=== PATIENT | female | born 1970 | race Caucasian/White ===

== ENCOUNTER 2017-06-04 20:56 | Emergency (ER) | payer OTHER ==
[~2017-06-04] VITALS: Ht 177.8 cm; Wt 136.1 kg
[~2017-06-04 20:56] MED LIST: ALBU90OI INH; Bactrim Ds Tab1 EACH PO; CEPH500 PO; CLIN150; CYCL10 PO; DIAZ5 PO; DIVA125EC; DULO30 PO; DULO60 PO; GABA300 PO; HYDACE5 PO; IBUP600 PO; IBUP800 PO; LITH300C PO; Lorazepam1 MG PO; MELO7.5 PO; NAPR500 PO; NAPR550 PO; Naprosyn500 MG PO; OXYACE5T PO; Oxybutynin Chlo10 MG PO; PRED20 PO; PROACE100 PO; PROM25 PO; Percocet 5-3251 EACH PO; RXNAPNA550 PO; RXONDA4ODT MM; RXOXYACE PO; RXPROACE PO; RXPROM25 PO; RXSULTRIDS PO; SULTRIDS PO; TOBDEXOPSU OP; TRAZ50 PO; [UNRECOGNIZED DRUG - REMARK]
[2017-06-04] MEDS ORDERED: Bactrim Ds Tab1 EACH PO (22:06)
[2017-06-04] MEDS ORDERED: CEPH500 PO (22:06)
== END 2017-06-04 22:22 | disposition home or self-care (01) ==
LOC: ER 20:56
DX: L02.415 Cutaneous abscess of right lower limb (principal); L03.115 Cellulitis of right lower limb; Z88.5 Allergy status to narcotic agent; F32.9 Major depressive disorder, single episode, unspecified; F17.200 Nicotine dependence, unspecified, uncomplicated
CPT/HCPCS: 10060; 99283

== ENCOUNTER → 2019-01-09 | Outpatient (CLI) | payer OTHER | LOC: LAB SHORT 15:46 → LAB EV 15:46 | DX: N39.0 Urinary tract infection, site not specified (principal) | CPT/HCPCS: 87077; 87086; 87186 ==

== ENCOUNTER → 2019-02-25 | Outpatient (CLI) | payer OTHER ==
[2019-02-25 11:05] LABS: BASOPHILS ABSOLUTE AUTO 0.02 K/mm3 (0.00-0.23); BASOPHILS PERCENT AUTO 0 % (0-2); EOSINOPHILS ABSOLUTE AUTO 0.29 K/mm3 (0.00-0.68); EOSINOPHILS PERCENT AUTO 4 % (0-6); Hematocrit 45.7 % (33.0-51.0); Hemoglobin 15.6 g/dL (11.5-16.0); IMMATURE GRAN ABSOLUTE AUTO 0.02 K/mm3 (0.00-0.10); IMMATURE GRAN PERCENT AUTO 0 % (0-1); LYMPHOCYTES ABSOLUTE AUTO 0.87 K/mm3 (0.84-5.20); LYMPHOCYTES PERCENT AUTO 12 % (21-46); MONOCYTES ABSOLUTE AUTO 0.43 K/mm3 (0.16-1.47); MONOCYTES PERCENT AUTO 6 % (4-13); Mean Corpuscular HGB 32.2 pg (26.0-34.0); Mean Corpuscular HGB Conc 34.1 g/dL (31.5-36.5); Mean Corpuscular Volume 94 fL (80-100); Mean Platelet Volume 9.2 fL (9.1-12.4); NEUTROPHILS ABSOLUTE AUTO 5.82 K/mm3 (1.96-9.15); NEUTROPHILS PERCENT AUTO 78 % (41-73); Platelet Count 382 K/mm3 (150-400); RDW Coefficient Variation 12.3 % (11.7-14.2); RDW Standard Deviation 42.9 fL (35.1-46.3); Red Blood Cell Count 4.85 M/mm3 (3.80-5.20); White Blood Cell Count 7.45 K/mm3 (4.00-11.30)
[2019-02-25 11:20] LABS: Alanine Aminotransfer (ALT/SGP 24 U/L (12-78); Albumin, Blood 3.8 g/dL (3.4-5.0); Albumin/Globulin Ratio 0.9 (0.8-1.8); Alk Phos 73 U/L (40-126); Anion Gap 7 mmol/L (6-16); Aspartate Aminotrans (AST/SGOT 26 U/L (12-37); Bilirubin, Total 0.3 mg/dL (0.1-1.0); Blood Urea Nitrogen 7 mg/dL (8-24); Bun/Creatinine Ratio 8.4 (12.0-20.0); CO2, Blood 29 mmol/L (21-32); Calcium, Blood 8.9 mg/dL (8.5-10.1); Chloride, Blood 104 mmol/L (98-108); Creatinine, Blood 0.83 mg/dL (0.40-1.00); Globulin, Blood 4.3 g/dL (2.2-4.0); Glomerular Filtration Rate >60 (60-); Glucose, Blood 83 mg/dL (70-99); Potassium, Blood 4.3 mmol/L (3.5-5.5); Sodium, Blood 140 mmol/L (136-145); Total Protein, Blood 8.1 g/dL (6.4-8.2)
== END | disposition home or self-care (01) ==
LOC: LAB EV 10:56 → LAB SHORT 10:56
PROVIDERS: Physician Assistant
DX: T50.905A Adverse effect of unspecified drugs, medicaments and biological substances, initial encounter (principal)
CPT/HCPCS: 80053; 85025

== ENCOUNTER 2021-03-19 09:35 | Emergency (ER) | payer OTHER ==
[~2021-03-19] VITALS: Ht 177.8 cm; Wt 140.6 kg
[2021-03-19] MEDS ORDERED: TRAM50 PO (11:15)
[2021-03-19] MEDS ORDERED: Voltaren100 GM TOP (11:15)
== END 2021-03-19 11:32 | disposition home or self-care (01) ==
LOC: ER 09:35
DX: M25.562 Pain in left knee (principal); F17.210 Nicotine dependence, cigarettes, uncomplicated; Z88.5 Allergy status to narcotic agent; Z79.899 Other long term (current) drug therapy
CPT/HCPCS: 73562-LT; 96372; 99283-25; J1885

== ENCOUNTER 2023-03-16 22:36 | Emergency (ER) | payer OTHER ==
[~2023-03-16] VITALS: Ht 177.8 cm; Wt 127.0 kg
[~2023-03-16 22:36] MED LIST changes: +TRAM50 PO; +Voltaren100 GM TOP
[2023-03-16 23:28] VITALS: BP 117/77
== END 2023-03-16 23:36 | disposition home or self-care (01) ==
LOC: ER 22:36
DX: S61.412A Laceration without foreign body of left hand, initial encounter (principal); F17.210 Nicotine dependence, cigarettes, uncomplicated; W26.0XXA Contact with knife, initial encounter; Z88.5 Allergy status to narcotic agent
CPT/HCPCS: 12001; 99282-25

== ENCOUNTER 2025-01-29 17:39 | Inpatient (IN) | payer OTHER ==
[~2025-01-29] VITALS: Ht 177.8 cm; Wt 146.4 kg
[2025-01-29 18:12] LABS: BASOPHILS ABSOLUTE AUTO 0.04 K/mm3 (0.00-0.23); BASOPHILS PERCENT AUTO 0 % (0-2); EOSINOPHILS ABSOLUTE AUTO 0.06 K/mm3 (0.00-0.68); EOSINOPHILS PERCENT AUTO 0 % (0-6); Hematocrit 42.4 % (33.0-51.0); Hemoglobin 14.3 g/dL (11.5-16.0); IMMATURE GRAN ABSOLUTE AUTO 0.06 K/mm3 (0.00-0.10); IMMATURE GRAN PERCENT AUTO 0 % (0-1); LYMPHOCYTES ABSOLUTE AUTO 1.28 K/mm3 (0.84-5.20); LYMPHOCYTES PERCENT AUTO 9 % (21-46); MONOCYTES ABSOLUTE AUTO 0.64 K/mm3 (0.16-1.47); MONOCYTES PERCENT AUTO 5 % (4-13); Mean Corpuscular HGB Conc 33.7 g/dL (31.5-36.5); Mean Corpuscular Volume 94 fL (80-100); NEUTROPHILS ABSOLUTE AUTO 11.64 K/mm3 (1.96-9.15); NEUTROPHILS PERCENT AUTO 85 % (41-73); NRBC ABSOLUTE 0.00 K/mm3 (0.00-0.02); NRBC Auto 0.0 /100 WBC (0.0-0.2); Platelet Count 276 K/mm3 (150-400); RDW Coefficient Variation 12.3 % (11.7-14.2); RDW Standard Deviation 42.3 fL (35.1-46.3)
[2025-01-29] MEDS ORDERED: Ondansetron HCl 2 MG / ML 2ML Vial IV ONE (18:30)
[2025-01-29 18:31] LABS: Alanine Aminotransfer (ALT/SGP 29 U/L (12-78); Albumin, Blood 3.8 g/dL (3.4-5.0); Albumin/Globulin Ratio 0.9 (0.8-1.8); Anion Gap 6 mmol/L (3-11); Aspartate Aminotrans (AST/SGOT 26 U/L (12-37); Bilirubin, Total 0.5 mg/dL (0.1-1.0); Blood Urea Nitrogen 7 mg/dL (8-24); CO2, Blood 28 mmol/L (21-32); Calcium, Blood 9.5 mg/dL (8.5-10.1); Chloride, Blood 107 mmol/L (98-108); Creatinine, Blood 0.63 mg/dL (0.40-1.00); Ethanol (Alcohol), Blood, Med <3 mg/dL; Globulin, Blood 4.3 g/dL (2.2-4.0); Glucose, Blood 154 mg/dL (70-99); Potassium, Blood 3.3 mmol/L (3.5-5.5); Sodium, Blood 138 mmol/L (136-145); Total Protein, Blood 8.1 g/dL (6.4-8.2)
[2025-01-29] MEDS ORDERED: FLU VACC TS2025-26(6MOS UP)/PF 45 MCG/0.5 ML SYRINGE IM SCH (19:35)
[2025-01-29 21:18] VITALS: BP 129/85
[2025-01-30 00:52] VITALS: BP 124/83
[2025-01-30 01:33] LABS: Source, Urine Clean Catch
[2025-01-30 01:44] LABS: Bilirubin, Urine Neg (Neg); Glucose Qualitative, Urine Neg (Neg); Ketones, Urine 1+ (Neg); Leukocyte Esterase, Urine 2+ (Neg); Protein, Urine 2+ (Neg); Specific Gravity, Urine 1.010 (1.003-1.022); Urobilinogen, Urine NORM (Normal)
[2025-01-30 01:54] LABS: Color, Urine Yellow (P-Yellow); White Blood Cells, Urine 50-100 /hpf (0-5)
[2025-01-30 01:55] LABS: Red Blood Cells, Urine 0-2 /hpf (0-2)
[2025-01-30 02:03] LABS: U Amphetamine Screen DETECTED; U Barbiturate Screen Not Detected; U Benzodiazapine Screen Not Detected; U Buprenorphine Screen Not Detected; U Cannabinoids Screen Not Detected; U Cocaine Screen Not Detected; U Methadone Screen Not Detected; U Methamphetamine Screen DETECTED; U Opiates Screen Not Detected; U Phencyclidine Screen Not Detected
[2025-01-30 02:04] LABS: U Oxycodone Screen Not Detected
[2025-01-30 03:56] LABS: BASOPHILS ABSOLUTE AUTO 0.02 K/mm3 (0.00-0.23); BASOPHILS PERCENT AUTO 0 % (0-2); EOSINOPHILS ABSOLUTE AUTO 0.00 K/mm3 (0.00-0.68); EOSINOPHILS PERCENT AUTO 0 % (0-6); Hematocrit 41.4 % (33.0-51.0); Hemoglobin 13.6 g/dL (11.5-16.0); IMMATURE GRAN ABSOLUTE AUTO 0.02 K/mm3 (0.00-0.10); IMMATURE GRAN PERCENT AUTO 0 % (0-1); LYMPHOCYTES ABSOLUTE AUTO 0.76 K/mm3 (0.84-5.20); LYMPHOCYTES PERCENT AUTO 8 % (21-46); MONOCYTES ABSOLUTE AUTO 0.37 K/mm3 (0.16-1.47); MONOCYTES PERCENT AUTO 4 % (4-13); Mean Corpuscular HGB Conc 32.9 g/dL (31.5-36.5); Mean Corpuscular Volume 94 fL (80-100); NEUTROPHILS ABSOLUTE AUTO 8.89 K/mm3 (1.96-9.15); NEUTROPHILS PERCENT AUTO 88 % (41-73); NRBC ABSOLUTE 0.00 K/mm3 (0.00-0.02); NRBC Auto 0.0 /100 WBC (0.0-0.2); Platelet Count 269 K/mm3 (150-400); RDW Coefficient Variation 12.1 % (11.7-14.2); RDW Standard Deviation 42.0 fL (35.1-46.3)
[2025-01-30 04:26] LABS: Alanine Aminotransfer (ALT/SGP 27 U/L (12-78); Albumin, Blood 3.4 g/dL (3.4-5.0); Albumin/Globulin Ratio 0.8 (0.8-1.8); Anion Gap 8 mmol/L (3-11); Aspartate Aminotrans (AST/SGOT 22 U/L (12-37); Bilirubin, Total 0.5 mg/dL (0.1-1.0); Blood Urea Nitrogen 6 mg/dL (8-24); CHOL/HDL RATIO 2.5; CO2, Blood 29 mmol/L (21-32); Calcium, Blood 9.4 mg/dL (8.5-10.1); Chloride, Blood 106 mmol/L (98-108); Cholesterol 161 mg/dL (50-200); Creatinine, Blood 0.62 mg/dL (0.40-1.00); Globulin, Blood 4.1 g/dL (2.2-4.0); Glucose, Blood 127 mg/dL (70-99); HDL Cholesterol 64 mg/dL (>39); LDL/HDL RATIO 1.4; Low Density Lipoprotein Chol 88 mg/dL (0-110); Potassium, Blood 3.8 mmol/L (3.5-5.5); Sodium, Blood 139 mmol/L (136-145); Thyroid Stimulating Hormone 0.165 uIU/mL (0.360-4.800); Total Protein, Blood 7.5 g/dL (6.4-8.2); Triglycerides 47 mg/dL (30-160); Very Low Density Lipoprot Chol 9 mg/dL (6-32)
[2025-01-30] MEDS ORDERED: Ondansetron HCl 2 MG / ML 2ML Vial IV ONE (05:00)
[2025-01-30] MEDS ORDERED: Ondansetron HCl 2 MG / ML 2ML Vial IV PRN ×2 (05:00→14:25)
--- NOTE | 2025-01-30 06:50 | NUR ---
SHIFT SUMMARY: PT ARRIVES TO PCU 15 FROM THE ER VIA GURNEY AROUND 2100. TRANSFERRED PT TO HOSPITAL BED USING SLIDE SHEET. PT STATES SHE GETS DIZZY AND NAUSEAOUS WITH ANY MOVEMENT. PT ORIENTED TO ROOM AND CALL LIGHT. PT ARRIVES WITH AUDELIA, AUDELIA REMAINS AT BEDSIDE T/O THE NIGHT, ATTENTIVE TO PT. PT IS A&OX4. VSS ON RA. SR 70'S-80'S. NO NEURO DEFICITS NOTED THIS SHIFT. ADMINISTERED PRN ZOFRAN FOR N/V. PT REMAINS NPO THIS SHIFT. X2 ASSIST TO BSC. PT IS UNSTEADY ON HER FEET. VOIDING ADEQUATE AMOUNTS OF MALODOROUS, CLOUDY, AND CONCENTRATED YELLOW URINE. NO BM THIS SHIFT. BED IN LOWEST POSITION, CALL LIGHT WITHIN REACH. BED ALARM SET FOR PT'S SAFETY.
[2025-01-30 07:51] VITALS: BP 125/79
[2025-01-30] MEDS ORDERED: Prochlorperazine Edisylate 10 mg Vial IV STA (08:07)
[2025-01-30] MEDS ORDERED: Prochlorperazine Edisylate 10 mg Vial IV PRN (09:00)
--- NOTE | 2025-01-30 11:19 | NUR ---
MORNING SUMMARY THE PT IS DROWSY BUT ORIENTEDX4, SHE IS A 1-2P MOD ASSIST TRANSFER TO THE [facility] [place]. THE PT HAS EXTREME DIZZINESS WITH ANY MOVEMENT AND GETTING UP. THE PT STATES THAT SHE FEELS LIKE SHE IS BEING PUSHED OVER. WITH THE DIZZINESS THE PATIENT HAS BEEN HAVING N/V AND A 10/10 HEADACHE SINCE FALLING 01/29. MRI COMPLETED THIS LATE MORNING. AWAITING RESULTS AT THIS TIME. DR. LUIS ROUNDED ON THE PT THIS MORNING AND THIS RN DISCUSSED CONCERN OF DEHYDRATION D/T N/V, NPO, AND DARK POTENT URINE. THIS RN INQUIRED ABOUT FLUIDS. DR. LUIS STATED SHE WAS GOING TO TAKE A LOOK AND WANTS THE PT TO REMAIN NPO UNTIL SHE SEES THE MRI RESULTS. MEDICATIONS GIVEN PER EMAR FOR N/V. ON TELE THE PT IS SR 70'S, AND HER BP IS STABLE. SHE HAS BEEN ON RA W/ SP02 >92%. SHE DID DESATURATE TO 88% WHEN ASLEEP. THE PT'S ALEKSANDER STATED THAT THE PT HAS NEVER HAD A SLEEP STUDY BEFORE. ALEKSANDER HAS BEEN AT BEDSIDE AND UPDATES ON CARE. ALEKSANDER HAS THE PT'S JEWELRY, INCULDING THE PT'S WEDDING RING. SEE NOTES FOR UPDATES.
[2025-01-30 12:08] VITALS: BP 138/84
[2025-01-30] MEDS ORDERED: Miconazole Nitrate 2% 85 GM PWD TOP PRN (12:45)
--- NOTE | 2025-01-30 13:20 | NUR ---
MRI RESULTS THIS RN CALLED DR. LUIS WITH MRI RESULTS. NIH-7 ON ASSESSMENT. THE PT AND PT'S ARE AWAITING RESULTS FROM THE MRI STILL. DR. LUIS STATED SHE WILL BE BACK BY TO DISCUSS WITH THE PT. SEE NOTES FOR UPDATES.
[2025-01-30] MEDS ORDERED: FentaNYL Citrate 50 MCG/ML 2 ML Injection IV PRN (14:25)
[2025-01-30 15:16] VITALS: BP 138/83
--- NOTE | 2025-01-30 17:30 | NUR ---
Upon request, I visited with patient's SO, Debbie, outside of the patient's room. We talked about the complications of the medical diagnosis, their relationship and the many stressors that she is dealing with. We explored her spiritual beliefs, her hopes and the family unit dynamics. I provided therapeutic listening, gentle intellectual property counsel, and prayer. Debbie responded well and stated that the visit was very helpful. I will continue to remain available to the patient and family.
--- NOTE | 2025-01-30 17:39 | NUR ---
END OF SHIFT UPDATES THE PT HAS BEEN MORE ALERT AND REMAINS ORIENTEDX4. WHEN THE PT IS MORE ALERT SHE DOES NOT SLUR HER WORDS MUCH. THE PT HAS BEEN A 1-2 P ASSIST D/T DIZZINESS. ANTIVERT WAS STARTED FOR THE PT THIS AFTERNOON. NAUSEA HAS BEEN IMPROVING SINCE THIS MORNING AND THE PT WAS CLEARED FOR A REGULAR DIET AFTER A BEDSIDE SWALLOW EVALUATION. THE PT PASSED BED SIDE SWALLOW AND HAS BEEN STARTED TO A REGULAR DIET. DR. LUIS CAME AND DISCUSSED RESULTS WITH THE PT AND THE PT'S . PRINTED AND VERBAL EDUCATION PROVIDED ABOUT STROKE PREVENTION AND CARE. PT/OT/ST ORDERED BUT THEY HAVE NOT SEEN THE PT TODAY. AN ECHO WAS ORDERED, BUT THE STAFF SAID IT WILL BE DONE 01/31. THE PT REMAINS ON RA W/ SP02 >93%. SHE WAS FOUND TO DESATURATE TO 88% WHEN SHE SLEEPS. ON TELE SHE HAS BEEN SR 80'S. SEE NOTES FOR ANY UPDATES.
[2025-01-30 20:58] VITALS: BP 135/79
[2025-01-31 00:48] VITALS: BP 132/82
[2025-01-31 04:20] VITALS: BP 146/83
[2025-01-31 05:44] LABS: Alanine Aminotransfer (ALT/SGP 23.0 U/L (12-78); Albumin, Blood 3.3 g/dL (3.4-5.0); Albumin/Globulin Ratio 0.9 (0.8-1.8); Anion Gap 8.0 mmol/L (3-11); Aspartate Aminotrans (AST/SGOT 16.0 U/L (12-37); Bilirubin, Total 0.4 mg/dL (0.1-1.0); Blood Urea Nitrogen 9.0 mg/dL (8-24); CO2, Blood 29.0 mmol/L (21-32); Calcium, Blood 9.1 mg/dL (8.5-10.1); Chloride, Blood 104.0 mmol/L (98-108); Creatinine, Blood 0.68 mg/dL (0.40-1.00); Globulin, Blood 3.6 g/dL (2.2-4.0); Glucose, Blood 111.0 mg/dL (70-99); Potassium, Blood 3.5 mmol/L (3.5-5.5); Sodium, Blood 137.0 mmol/L (136-145); Total Protein, Blood 6.9 g/dL (6.4-8.2)
--- NOTE | 2025-01-31 06:36 | NUR ---
SHIFT SUMMARY: PT IS A&OX4, PLEASANT AND COOPERATIVE WITH CARE. VSS ON RA. SR 70'S-90'S. SHIFT CHANGE NIH SCALE COMPLETED WITH DAY SHIFT RN. NIH SCALE NUMBER WAS 3. NO ACUTE NEURO CHANGES NOTED THIS SHIFT. PT STILL GETTING DIZZY AND NAUSEOUS WITH ANY MOVEMENT. PRN ANTIVERT AND ZOFRAN ADMINISTERED. PT C/O TAYLOR, AND BACK PAIN, PRN 650 MG PO TYLENOL GIVEN WITH SOME RELIEF. TOLERATING A HEART HEALTHY DIET. X2 ASSIST WITH FWW TO BSC. PT IS UNSTEADY ON HER FEET. VOIDING ADEQUATE AMOUNTS OF MALODOROUS, CLOUDY, AND CONCENTRATED YELLOW URINE. NO BM THIS SHIFT. AUDELIA REMAINS AT BEDSIDE T/O THE NIGHT, ATTENTIVE TO PT. BED IN LOWEST POSITION, CALL LIGHT WITHIN REACH. CALLS APPROPRIATELY AND IS ABLE TO ADVOCATE NEEDS EFFECTIVELY. BED ALARM SET FOR PT'S SAFETY.
[2025-01-31 08:19] VITALS: BP 138/90
[2025-01-31 12:34] VITALS: BP 144/92
[2025-01-31 16:44] VITALS: BP 108/82
--- NOTE | 2025-01-31 17:10 | NUR ---
PT IS A&Ox4 AND ABLE TO MAKE NEEDS KNOWN. SHE IS ON RA W/O2 SATS > 92%. SHE IS A x1 ASSIST W/FWW FOR AMBULATION TO BSC. SHE CONTINUES TO HAVE DIZZINESS AND NAUSEA, MEDICATING PER EMAR. NO OTHER NEEDS OR CONCERNS NOTED @ THIS TIME. @ BEDSIDE. BED IN LOW POSITION, CALL LIGHT AND PERSONAL BELONGINGS IN REACH.
[2025-01-31 19:50] VITALS: BP 128/81
[2025-02-01] VITALS (8 sets, daily range): BP systolic 118–150; BP diastolic 79–100
--- NOTE | 2025-02-01 04:52 | NUR ---
SHIFT SUMMARY: PT IS A&OX4, PLEASANT AND COOPERATIVE WITH CARE. VSS ON RA. SR 70'S-90'S. SHIFT CHANGE NIH SCALE COMPLETED WITH DAY SHIFT RN. NIH SCALE NUMBER WAS 1. NO ACUTE NEURO CHANGES NOTED THIS SHIFT. PT STILL HAVING VERTIGO. PRN ANTIVERT ADMINISTERED. PT C/O TAYLOR, AND BACK PAIN, PRN 650 MG PO TYLENOL GIVEN WITH SOME RELIEF. TOLERATING A HEART HEALTHY DIET. X1 ASSIST WITH FWW TO BR. VOIDING ADEQUATE AMOUNTS OF MALODOROUS, CLOUDY, AND CONCENTRATED YELLOW URINE. NO BM THIS SHIFT. AUDELIA AT BEDSIDE T/O THE NIGHT, ATTENTIVE TO PT. BED IN LOWEST POSITION, CALL LIGHT WITHIN REACH. CALLS APPROPRIATELY AND IS ABLE TO ADVOCATE NEEDS EFFECTIVELY. REPORT GIVEN TO YAKOV ON MEDICAL FLOOR AT 0115. TRANSFERRED PT TO ROOM 345 IN HOSPITAL BED WITH ALL BELONGINGS IN HER POSSESSION AROUND 0140. AUDELIA REMAINS AT BEDSIDE.
--- NOTE | 2025-02-01 06:40 | NUR ---
SHIFT SUMMARY ASSUMED CARE AT 0140. A/Ox4, VSS ON RA. SCORING 1 ON NIH SCALE DUE TO DECREASED SENSATION AT BLE. PT UP TO RESTROOM WITH 1P/FWW. VOIDING CLOUDY, MALODOROUS URINE; PT DENIES URINARY COMPLAINTS. SPOUSE ROOMING IN. SAFETY PRECAUTIONS IN PLACE.
--- NOTE | 2025-02-01 17:06 | NUR ---
SHIFT SUMMARY PATIENT IS A&OX4, SBA WITH FWW, WAS EVALUATED BY PT AND OT. ROOM AIR AND TELE AT NSR 90'S. SHE CONTINUES TO HAVE NAUSEA, BUT NO VOMITING. SHE IS SLEEPING MOST OF THE DAY. RESISTENT TO PARTICIPATE IN CARE IN THE AM. SHE HAS HAD NO ACUTE CHANGES. PLANS TO DISCHARGE TO SNF. BED IS LOW, ALARM SET, CALL LIGHT IN REACH. SHE CALLS APPROPRIATELY.
--- NOTE | 2025-02-02 05:39 | NUR ---
SHIFT SUMMARY A/Ox4, VSS ON RA. PT REPORTS CONTINUED VERTIGO; STATES SHE DOES NOT FEEL AN EFFECT WITH ANTIVERT. MD APPROVED REQUEST TO REMOVE TELE FOR SHOWER. PT AMBULATING WITH SBA/FWW. PRN TYLENOL GIVEN FOR 8/10 HEADACHE; OFFERED FENTANYL ; PT REQUESTED TYLENOL FIRST. PT CALLS APPROPRIATELY. SCORING 1 ON NIH SCALE FOR CONTINUED BLURRED VISION/VERTIGO/DECREASED SENSATION AT BILAT FEET. SPOUSE ROOMING IN.
[2025-02-02 05:45] VITALS: BP 126/88
[2025-02-02 07:19] VITALS: BP 96/79
[2025-02-02 11:01] LABS: U Amphetamine Screen Not Detected; U Barbiturate Screen Not Detected; U Benzodiazapine Screen Not Detected; U Buprenorphine Screen Not Detected; U Cannabinoids Screen Not Detected; U Cocaine Screen Not Detected; U Methadone Screen Not Detected; U Methamphetamine Screen Not Detected; U Opiates Screen Not Detected; U Oxycodone Screen Not Detected; U Phencyclidine Screen Not Detected
[2025-02-02] MEDS ORDERED: Nitrofurantoin/Nitrofuran Mac 100 MG Cap PO SCH (13:00)
--- NOTE | 2025-02-02 15:48 | NUR ---
SHIFT SUMMARY; PT A/OX4 AND SBA W/ FWW TO THE RESTROOM. PT ASSESSMENT COMPLETED, INCLUDING NIH STROKE SCALE- SEE ASSESSMENT. PT EXPERIENCING NAUSEA AND DIZZINESS THIS AM. PT MEDICATED PER EMAR. PT/OT AT BEDSIDE TODAY- SEE NOTES. BED IN LOW POITION. CALL LIGHT WITHIN REACH.
[2025-02-02 19:37] VITALS: BP 137/83
[2025-02-02 23:46] VITALS: BP 137/78
[2025-02-03 03:57] VITALS: BP 102/63
--- NOTE | 2025-02-03 06:14 | NUR ---
SHIFT SUMMARY A/Ox4, VSS ON RA. PT DENIES URINARY COMPLAINTS, TOLERATING BACTRIM WELL. REPORTS 01/13 HEADACHE, PRN FENTANYL EFFECTIVE. AMBULATING TO RESTROOM WITH SBA/FWW. NO ACUTE CHANGES OVERNIGHT.
[2025-02-03 08:13] VITALS: BP 125/86
[2025-02-03] MEDS ORDERED: Nitrofurantoin/Nitrofuran Mac 100 MG Cap PO ONE (09:00)
[2025-02-03] MEDS ORDERED: ASPI81CH PO (11:09)
[2025-02-03] MEDS ORDERED: ATOR80 PO (11:10)
[2025-02-03] MEDS ORDERED: CLOP75 PO (11:14)
[2025-02-03] MEDS ORDERED: ONDA4ODT MM (11:14)
[2025-02-03] MEDS ORDERED: NITR100CA PO (11:14)
--- NOTE | 2025-02-03 11:28 | NUR ---
DISCHARGE NOTE CARE COORIDINATOR ARRANGED TRANSPORT. IV REMOVED. TRANSPORT PICKED UP AT APPROXIMATELY 1058. CALLED REPORT IN TO [facility] NURSE JOSSY. NO CONCERNS PRIOR TO DC.
== END 2025-02-03 11:13 | DRG 65 ==
LOC: ER 17:39 → PCU 19:34 → MEDS 02-01 01:32 → ENPENDDIS 02-03 08:35 → MEDS 02-03 11:13
PROVIDERS: Family Medicine; Student in an Organized Health Care Education/Training Program; ADMIT Student in an Organized Health Care Education/Training Program
DX: I63.432 Cerebral infarction due to embolism of left posterior cerebral artery (principal); N39.0 Urinary tract infection, site not specified; Z68.42 Body mass index [BMI] 45.0-49.9, adult; R47.81 Slurred speech; F32.A Depression, unspecified; Z98.890 Other specified postprocedural states; R47.1 Dysarthria and anarthria; R42 Dizziness and giddiness; R29.818 Other symptoms and signs involving the nervous system; R29.701 NIHSS score 1; B96.20 Unspecified Escherichia coli [E. coli] as the cause of diseases classified elsewhere; F15.10 Other stimulant abuse, uncomplicated; E66.01 Morbid (severe) obesity due to excess calories; E23.7 Disorder of pituitary gland, unspecified; Z87.891 Personal history of nicotine dependence; Z88.5 Allergy status to narcotic agent; Z79.899 Other long term (current) drug therapy; Z23 Encounter for immunization; Z88.8 Allergy status to other drugs, medicaments and biological substances; S00.03XA Contusion of scalp, initial encounter; E87.6 Hypokalemia; W18.39XA Other fall on same level, initial encounter
CPT/HCPCS: 36415; 70450; 70496; 70498; 70551; 80053; 80061; 80320; 81001; 82947; 83036; 84443; 85025; 87077; 87086; 87186; 92610; 93005; 93010; 93306; 96374-59; 97112; 97116; 97162; 97166; 97530; 97535; 99285-25; A9270; J0780; J2405; J3010; Q9967

== ENCOUNTER 2025-02-07 19:06 | Emergency (ER) | payer OTHER ==
[~2025-02-07] VITALS: Ht 165.1 cm; Wt 86.2 kg
[~2025-02-07 19:06] MED LIST changes: +ASPI81CH PO; +ATOR80 PO; +CLOP75 PO; +NITR100CA PO; +ONDA4ODT MM
[2025-02-07 19:51] LABS: BASOPHILS ABSOLUTE AUTO 0.04 K/mm3 (0.00-0.23); BASOPHILS PERCENT AUTO 0 % (0-2); EOSINOPHILS ABSOLUTE AUTO 0.10 K/mm3 (0.00-0.68); EOSINOPHILS PERCENT AUTO 1 % (0-6); Hematocrit 45.8 % (33.0-51.0); Hemoglobin 15.3 g/dL (11.5-16.0); IMMATURE GRAN ABSOLUTE AUTO 0.04 K/mm3 (0.00-0.10); IMMATURE GRAN PERCENT AUTO 0 % (0-1); LYMPHOCYTES ABSOLUTE AUTO 1.78 K/mm3 (0.84-5.20); LYMPHOCYTES PERCENT AUTO 15 % (21-46); MONOCYTES ABSOLUTE AUTO 0.79 K/mm3 (0.16-1.47); MONOCYTES PERCENT AUTO 7 % (4-13); Mean Corpuscular HGB Conc 33.4 g/dL (31.5-36.5); Mean Corpuscular Volume 95 fL (80-100); NEUTROPHILS ABSOLUTE AUTO 9.47 K/mm3 (1.96-9.15); NEUTROPHILS PERCENT AUTO 78 % (41-73); NRBC ABSOLUTE 0.00 K/mm3 (0.00-0.02); NRBC Auto 0.0 /100 WBC (0.0-0.2); Platelet Count 441 K/mm3 (150-400); RDW Coefficient Variation 12.7 % (11.7-14.2); RDW Standard Deviation 44.0 fL (35.1-46.3)
[2025-02-07 20:17] LABS: Alanine Aminotransfer (ALT/SGP 35.0 U/L (12-78); Albumin, Blood 4.1 g/dL (3.4-5.0); Albumin/Globulin Ratio 1.0 (0.8-1.8); Anion Gap 6.0 mmol/L (3-11); Aspartate Aminotrans (AST/SGOT 25.0 U/L (12-37); Bilirubin, Total 0.2 mg/dL (0.1-1.0); Blood Urea Nitrogen 12.0 mg/dL (8-24); CO2, Blood 29.0 mmol/L (21-32); Calcium, Blood 9.6 mg/dL (8.5-10.1); Chloride, Blood 106.0 mmol/L (98-108); Creatinine, Blood 0.66 mg/dL (0.40-1.00); Globulin, Blood 4.2 g/dL (2.2-4.0); Glucose, Blood 121.0 mg/dL (70-99); Potassium, Blood 4.1 mmol/L (3.5-5.5); Sodium, Blood 137.0 mmol/L (136-145); Total Protein, Blood 8.3 g/dL (6.4-8.2)
[2025-02-07 21:27] LABS: Magnesium, Blood 2.7 mg/dL (1.6-2.4); Phosphorus, Blood 3.5 mg/dL (2.5-4.9)
[2025-02-07 21:38] LABS: Source, Urine Clean Catch
[2025-02-07 22:17] LABS: Bilirubin, Urine Neg (Neg); Glucose Qualitative, Urine Neg (Neg); Ketones, Urine Neg (Neg); Leukocyte Esterase, Urine 2+ (Neg); Protein, Urine 2+ (Neg); Specific Gravity, Urine 1.020 (1.003-1.022); Urobilinogen, Urine NORM (Normal)
[2025-02-07 22:31] LABS: U Amphetamine Screen DETECTED; U Barbiturate Screen Not Detected; U Benzodiazapine Screen Not Detected; U Buprenorphine Screen Not Detected; U Cannabinoids Screen Not Detected; U Cocaine Screen Not Detected; U Methadone Screen Not Detected; U Methamphetamine Screen DETECTED; U Opiates Screen Not Detected; U Oxycodone Screen Not Detected; U Phencyclidine Screen Not Detected
[2025-02-07 22:35] LABS: Color, Urine Yellow (P-Yellow)
[2025-02-07 22:36] LABS: Red Blood Cells, Urine 0-2 /hpf (0-2); White Blood Cells, Urine 25-50 /hpf (0-5)
[2025-02-07] MEDS ORDERED: CefTRIAXone Sodium 1,000 MG in NS 50 ML IV ONE (23:20)
[2025-02-07] MEDS ORDERED: NS 1,000 ML IV SCH (23:20)
[2025-02-07] MEDS ORDERED: CEPH500 PO (23:28)
[2025-02-08 00:30] VITALS: BP 135/90
[2025-02-09] MEDS ORDERED: SENNA LAXATIVE8.6 MG PO (01:37)
[2025-02-09] MEDS ORDERED: POLY500 PO (01:37)
[2025-02-09] MEDS ORDERED: DICY20 PO (01:38)
== END 2025-02-08 01:10 | disposition home or self-care (01) ==
LOC: ER 19:06
PROVIDERS: Emergency Medicine; Student in an Organized Health Care Education/Training Program
DX: N39.0 Urinary tract infection, site not specified (principal); F17.200 Nicotine dependence, unspecified, uncomplicated; Z79.82 Long term (current) use of aspirin; Z79.02 Long term (current) use of antithrombotics/antiplatelets; Z79.899 Other long term (current) drug therapy; Z88.0 Allergy status to penicillin; Z88.5 Allergy status to narcotic agent
CPT/HCPCS: 70450; 80053; 81001; 83690; 83735; 84100; 85025; 87077; 87086; 87186; 93005; 93010; 96365; 99284-25; J0696; J7030

== ENCOUNTER 2025-02-08 22:12 | Emergency (ER) | payer OTHER ==
[~2025-02-08] VITALS: Ht 177.8 cm; Wt 147.4 kg
[2025-02-08 22:30] VITALS: BP 114/74
[2025-02-08 23:06] LABS: BASOPHILS ABSOLUTE AUTO 0.04 K/mm3 (0.00-0.23); BASOPHILS PERCENT AUTO 0 % (0-2); EOSINOPHILS ABSOLUTE AUTO 0.15 K/mm3 (0.00-0.68); EOSINOPHILS PERCENT AUTO 1 % (0-6); Hematocrit 43.3 % (33.0-51.0); Hemoglobin 14.2 g/dL (11.5-16.0); IMMATURE GRAN ABSOLUTE AUTO 0.03 K/mm3 (0.00-0.10); IMMATURE GRAN PERCENT AUTO 0 % (0-1); LYMPHOCYTES ABSOLUTE AUTO 1.90 K/mm3 (0.84-5.20); LYMPHOCYTES PERCENT AUTO 16 % (21-46); MONOCYTES ABSOLUTE AUTO 0.95 K/mm3 (0.16-1.47); MONOCYTES PERCENT AUTO 8 % (4-13); Mean Corpuscular HGB Conc 32.8 g/dL (31.5-36.5); Mean Corpuscular Volume 93 fL (80-100); NEUTROPHILS ABSOLUTE AUTO 8.95 K/mm3 (1.96-9.15); NEUTROPHILS PERCENT AUTO 75 % (41-73); NRBC ABSOLUTE 0.00 K/mm3 (0.00-0.02); NRBC Auto 0.0 /100 WBC (0.0-0.2); Platelet Count 457 K/mm3 (150-400); RDW Coefficient Variation 12.8 % (11.7-14.2); RDW Standard Deviation 44.2 fL (35.1-46.3)
[2025-02-08 23:22] LABS: Alanine Aminotransfer (ALT/SGP 34.0 U/L (12-78); Albumin, Blood 3.9 g/dL (3.4-5.0); Albumin/Globulin Ratio 0.9 (0.8-1.8); Anion Gap 5.0 mmol/L (3-11); Aspartate Aminotrans (AST/SGOT 21.0 U/L (12-37); Bilirubin, Total 0.4 mg/dL (0.1-1.0); Blood Urea Nitrogen 13.0 mg/dL (8-24); CO2, Blood 31.0 mmol/L (21-32); Calcium, Blood 9.3 mg/dL (8.5-10.1); Chloride, Blood 105.0 mmol/L (98-108); Creatinine, Blood 0.83 mg/dL (0.40-1.00); Globulin, Blood 4.2 g/dL (2.2-4.0); Glucose, Blood 122.0 mg/dL (70-99); Potassium, Blood 4.1 mmol/L (3.5-5.5); Sodium, Blood 137.0 mmol/L (136-145); Total Protein, Blood 8.1 g/dL (6.4-8.2)
[2025-02-09] MEDS ORDERED: Ondansetron HCl 2 MG / ML 2ML Vial IV ONE (00:05)
[2025-02-09 00:16] LABS: Bilirubin, Urine Neg (Neg); Glucose Qualitative, Urine Neg (Neg); Ketones, Urine Neg (Neg); Leukocyte Esterase, Urine 1+ (Neg); Protein, Urine Neg (Neg); Source, Urine Clean Catch; Specific Gravity, Urine 1.020 (1.003-1.022); Urobilinogen, Urine NORM (Normal)
[2025-02-09 00:30] LABS: Color, Urine Yellow (P-Yellow)
[2025-02-09] MEDS ORDERED: POLY500 PO (01:37)
[2025-02-09] MEDS ORDERED: SENNA LAXATIVE8.6 MG PO (01:37)
[2025-02-09] MEDS ORDERED: DICY20 PO (01:38)
== END 2025-02-09 02:00 | disposition home or self-care (01) ==
LOC: ER 22:12
PROVIDERS: Student in an Organized Health Care Education/Training Program
DX: K59.00 Constipation, unspecified (principal); N39.0 Urinary tract infection, site not specified; Z79.01 Long term (current) use of anticoagulants; Z91.148 Patient's other noncompliance with medication regimen for other reason; F17.200 Nicotine dependence, unspecified, uncomplicated; Z88.0 Allergy status to penicillin; Z88.5 Allergy status to narcotic agent; Z79.82 Long term (current) use of aspirin; Z79.899 Other long term (current) drug therapy
CPT/HCPCS: 74177; 80053; 81001; 83690; 85025; 87086; 96374; 99284-25; A9270; J2405; Q9967

== ENCOUNTER → 2025-03-13 | Outpatient (CLI) | payer OTHER ==
[~2025-03-13] MED LIST changes: +DICY20 PO; +POLY500 PO; +SENNA LAXATIVE8.6 MG PO
[2025-03-13 20:18] LABS: BASOPHILS ABSOLUTE AUTO 0.05 K/mm3 (0.00-0.23); BASOPHILS PERCENT AUTO 1 % (0-2); EOSINOPHILS ABSOLUTE AUTO 0.10 K/mm3 (0.00-0.68); EOSINOPHILS PERCENT AUTO 1 % (0-6); Hematocrit 43.2 % (33.0-51.0); Hemoglobin 13.9 g/dL (11.5-16.0); IMMATURE GRAN ABSOLUTE AUTO 0.01 K/mm3 (0.00-0.10); IMMATURE GRAN PERCENT AUTO 0 % (0-1); LYMPHOCYTES ABSOLUTE AUTO 1.90 K/mm3 (0.84-5.20); LYMPHOCYTES PERCENT AUTO 24 % (21-46); MONOCYTES ABSOLUTE AUTO 0.60 K/mm3 (0.16-1.47); MONOCYTES PERCENT AUTO 8 % (4-13); Mean Corpuscular HGB Conc 32.2 g/dL (31.5-36.5); Mean Corpuscular Volume 94 fL (80-100); NEUTROPHILS ABSOLUTE AUTO 5.14 K/mm3 (1.96-9.15); NEUTROPHILS PERCENT AUTO 66 % (41-73); NRBC ABSOLUTE 0.00 K/mm3 (0.00-0.02); NRBC Auto 0.0 /100 WBC (0.0-0.2); Platelet Count 366 K/mm3 (150-400); RDW Coefficient Variation 12.6 % (11.7-14.2); RDW Standard Deviation 43.8 fL (35.1-46.3)
[2025-03-13 21:03] LABS: Alanine Aminotransfer (ALT/SGP 37 U/L (12-78); Albumin, Blood 4.0 g/dL (3.4-5.0); Albumin/Globulin Ratio 0.9 (0.8-1.8); Anion Gap 11 mmol/L (3-11); Aspartate Aminotrans (AST/SGOT 40 U/L (12-37); Bilirubin, Total 0.6 mg/dL (0.1-1.0); Blood Urea Nitrogen 14 mg/dL (8-24); CHOL/HDL RATIO 2.4; CO2, Blood 22 mmol/L (21-32); Calcium, Blood 9.8 mg/dL (8.5-10.1); Chloride, Blood 105 mmol/L (98-108); Cholesterol 163 mg/dL (50-200); Creatinine, Blood 0.87 mg/dL (0.40-1.00); Globulin, Blood 4.6 g/dL (2.2-4.0); Glucose, Blood 100 mg/dL (70-99); HDL Cholesterol 69 mg/dL (>39); LDL/HDL RATIO 1.2; Low Density Lipoprotein Chol 80 mg/dL (0-110); Potassium, Blood 3.8 mmol/L (3.5-5.5); Sodium, Blood 134 mmol/L (136-145); Thyroid Stimulating Hormone 1.010 uIU/mL (0.360-4.800); Total Protein, Blood 8.6 g/dL (6.4-8.2); Triglycerides 68 mg/dL (30-160); Very Low Density Lipoprot Chol 13 mg/dL (6-32)
== END ==
LOC: LAB SHORT 15:45 → LAB 15:45
PROVIDERS: Nurse Practitioner Family
DX: Z00.00 Encounter for general adult medical examination without abnormal findings (principal)
CPT/HCPCS: 80053; 80061; 83036; 84443; 85025